=== PATIENT | male | born 2000 | race Caucasian/White ===

== ENCOUNTER 2022-03-02 21:55 | Emergency (ER) | payer OTHER ==
[~2022-03-02] VITALS: Ht 188 cm; Wt 77.8 kg
[2022-03-02 22:00] VITALS: BP 137/94
== END 2022-03-03 00:15 | disposition home or self-care (01) ==
LOC: ER 21:56
DX: S61.012A Laceration without foreign body of left thumb without damage to nail, initial encounter (principal); X58.XXXA Exposure to other specified factors, initial encounter; Y93.89 Activity, other specified; Y92.89 Other specified places as the place of occurrence of the external cause; Y99.8 Other external cause status
CPT/HCPCS: 99281